=== PATIENT | male | born 1990 | race Hispanic/Latino ===

== ENCOUNTER 2016-12-16 09:45 | Emergency (ER) | payer OTHER ==
[~2016-12-16] VITALS: Ht 177.8 cm; Wt 105.0 kg
[2016-12-16] MEDS ORDERED: MOTRIN800 MG PO (10:05)
[2016-12-16] MEDS ORDERED: TRAMADOL HYDROC50 MG PO (10:05)
[2016-12-16] MEDS ORDERED: FLEXERIL PO (10:05)
[2016-12-16 11:30] VITALS: BP 139/74
== END 2016-12-16 11:30 | disposition home or self-care (01) | DRG 563 ==
LOC: ED 09:45
DX: S39.012A Strain of muscle, fascia and tendon of lower back, initial encounter (principal); X50.0XXA Overexertion from strenuous movement or load, initial encounter; Y93.89 Activity, other specified; Y92.79 Other farm location as the place of occurrence of the external cause